=== PATIENT | female | born 1980 | race African-American/Black ===

== ENCOUNTER 2020-06-13 10:24 | Emergency (ER) | payer OTHER, SELFPAY ==
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
[2020-06-13 10:35] VITALS: BP 143/90; PULSE 82; RESP 18; TEMP 36.9; O2SAT 98
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
== END 2020-06-13 11:47 | disposition home or self-care (01) ==
PROVIDERS: Emergency Provider Emergency Medicine Emergency Medical Services
DX: S16.1XXA Strain of muscle, fascia and tendon at neck level, initial encounter (principal); S43.401A Unspecified sprain of right shoulder joint, initial encounter; V43.52XA Car driver injured in collision with other type car in traffic accident, initial encounter; Y93.89 Activity, other specified; Y92.414 Local residential or business street as the place of occurrence of the external cause; Y99.9 Unspecified external cause status
CPT/HCPCS: 73030; 99283